=== PATIENT | male | born 1970 | race Caucasian/White ===

== ENCOUNTER 2022-02-03 20:07 | Inpatient (IN) | payer SELFPAY ==
[2022-02-03] MEDS ORDERED: Ondansetron PF 4 MG/2 ML Vial IVP PRN (21:43)
[2022-02-03] MEDS ORDERED: Ondansetron ODT 4 MG TAB PO PRN (21:43)
[2022-02-03 22:02] VITALS: BMI 27.2
[2022-02-03 23:11] LABS: Hemoglobin A1c 5.7 % (4.0-6.0)
[2022-02-03] MEDS ORDERED: Sodium Chloride 0.9% 1,000 ML IV SCH (23:15)
[2022-02-03] MEDS ORDERED: Morphine 4 MG/ML VIAL SLOW IVP SCH (23:30)
[2022-02-03 23:34] LABS: HIV (1/2) Antibody/Antigen Non-Reactive (NonReactive); HIV 1/2 INDEX 0.25 S/CO (<1.00); Hep C IgG Ab Non-Reactive (NonReactive); Hep C Index 0.13 S/CO (0-0.79)
[2022-02-03] MEDS ORDERED: Vancomycin HCl 1.75 GM in Sodium Chloride 0.9% 500 ML IVPB SCH (23:59)
[2022-02-04 06:01] LABS: #Basophils 0.1 thou/uL (0.0-0.2); #Eosinphils 0.5 thou/uL (0.0-0.7); #Lymphocytes 2.9 thou/uL (1.20-3.40); #Monocytes 1.1 thou/uL (0.11-0.59); #Neutrophils 7.1 thou/uL (1.40-6.50); %Basophils 0.5 % (0.0-1.0); %Eosinophils 3.9 % (0.0-10.0); %Lymphocytes 25.2 % (21.0-51.0); %Monocytes 9.2 % (0.0-10.0); %Neutrophils 61.3 % (42.0-75.0); Hemoglobin 13.8 g/dL (14.0-18.0); Mean Corpuscular HGB CONC 33.4 g/dL (32.0-36.0); Mean Corpuscular Hemoglobin 32.9 pg (27.0-31.0); Mean Corpuscular Volume 98.3 fL (78.0-98.0); Mean Platelet Volume 5.9 fL (7.4-10.4); Platelet Count 314 thou/uL (130-400); RBC Distribution Width 11.7 % (11.5-14.5); Red Blood Cell (RBC) Count 4.21 mill/uL (4.70-6.10); White Blood Cell (WBC) Count 11.7 thou/uL (4.8-10.8)
[2022-02-04 06:22] LABS: ALT (SGPT) 19 U/L (8-55); AST (SGOT) 19 U/L (5-34); Albumin 3.7 g/dL (3.5-5.0); Alkaline Phosphatase 83 U/L (40-110); Anion Gap 14 mmol/L (10-20); BUN (Urea Nitrogen) 22 mg/dL (8.4-25.7); Bilirubin, Total 0.3 mg/dL (0.2-1.2); Calc. Creatinine Clearance 96 mL/min (70-130); Carbon Dioxide 24 mmol/L (22-29); Chloride 102 mmol/L (98-107); Globulin 3.2 g/dL (2.4-3.5); Glucose 123 mg/dL (70-105); Potassium 3.7 mmol/L (3.5-5.1); Protein, Total 6.9 g/dL (6.0-8.3); Sodium 136 mmol/L (136-145)
[2022-02-04] MEDS ORDERED: Ketorolac Tromethamine 30 MG/ML VIAL IVP SCH (08:30)
[2022-02-04] MEDS ORDERED: Vancomycin 1.5 GRAM/300 ML BAG 1.5 GM in Premix Bag 1 BAG IVPB SCH (09:00)
[2022-02-04] MEDS: Sodium Chloride 0.9% 1,000 ML IV SCH ×2 (09:17→16:26)
[2022-02-04] MEDS: Vancomycin HCl 1.25 GM in Sodium Chloride 0.9% 250 ML 250 ML IVPB SCH ×2 (11:37→23:54)
[2022-02-04] MEDS: Ketorolac Tromethamine 30 MG/ML VIAL IVP PRN ×2 (16:52→23:58)
[2022-02-04] MEDS ORDERED: Midazolam HCl 2 mg/2 ml Vial ONE (18:57)
[2022-02-04] MEDS ORDERED: fentaNYL Citrate/PF 100 MCG/2 ML SYRINGE ONE (18:57)
[2022-02-04] MEDS ORDERED: Bacitracin Zinc Ointment 30 gm TUBE ONE (19:09)
[2022-02-04] MEDS ORDERED: Bupivacaine PF 0.5% 30 ML VIAL ONE (19:09)
[2022-02-04] MEDS ORDERED: PROPOFOL 200 MG/20 ML VIAL ONE (19:33)
[2022-02-04] MEDS ORDERED: Lidocaine 1% PF 5 ML VIAL ONE (19:33)
[2022-02-04] MEDS ORDERED: Neomycin-Polymyxin 1 ML AMP ONE (20:51)
[2022-02-04] MEDS ORDERED: Thrombin 5000 UNITS/5 ML VIAL ONE (20:51)
[2022-02-04] MEDS ORDERED: Promethazine HCl 25 MG/ML VIAL IM PRN (22:00)
[2022-02-05] MEDS: Sodium Chloride 0.9% 1,000 ML IV SCH (01:55)
[2022-02-05 05:32] LABS: #Eosinphils 0.5 thou/uL (0.0-0.7); #Lymphocytes 2.7 thou/uL (1.20-3.40); #Monocytes 0.7 thou/uL (0.11-0.59); #Neutrophils 6.7 thou/uL (1.40-6.50); %Basophils 0.4 % (0.0-1.0); %Eosinophils 4.8 % (0.0-10.0); %Lymphocytes 25.2 % (21.0-51.0); %Monocytes 6.7 % (0.0-10.0); Mean Corpuscular HGB CONC 33.5 g/dL (32.0-36.0); Mean Corpuscular Volume 98.3 fL (78.0-98.0); Mean Platelet Volume 5.9 fL (7.4-10.4); Platelet Count 286 thou/uL (130-400); RBC Distribution Width 11.5 % (11.5-14.5); Red Blood Cell (RBC) Count 4.26 mill/uL (4.70-6.10); White Blood Cell (WBC) Count 10.7 thou/uL (4.8-10.8)
[2022-02-05] MEDS: Acetaminophen 500 MG TAB PO SCH ×4 (05:32→22:31)
[2022-02-05] MEDS: Ketorolac Tromethamine 30 MG/ML VIAL IVP PRN ×2 (06:56→19:07)
[2022-02-05 11:19] LABS: Vancomycin, Trough 12.9 ug/mL
[2022-02-05] MEDS: Morphine 2 MG/ML VIAL SLOW IVP PRN ×2 (12:06→22:06)
[2022-02-05] MEDS: Vancomycin HCl 1.25 GM in Sodium Chloride 0.9% 250 ML 250 ML IVPB SCH (12:29)
[2022-02-06] MEDS: Vancomycin HCl 1.25 GM in Sodium Chloride 0.9% 250 ML 250 ML IVPB SCH ×2 (00:24→12:25)
[2022-02-06] MEDS: Ketorolac Tromethamine 30 MG/ML VIAL IVP PRN ×2 (05:19→12:31)
[2022-02-06] MEDS: Acetaminophen 500 MG TAB PO SCH ×4 (06:08→23:41)
[2022-02-06 06:52] LABS: #Basophils 0.1 thou/uL (0.0-0.2); #Eosinphils 0.5 thou/uL (0.0-0.7); #Lymphocytes 2.6 thou/uL (1.20-3.40); #Monocytes 0.7 thou/uL (0.11-0.59); #Neutrophils 4.8 thou/uL (1.40-6.50); %Basophils 0.8 % (0.0-1.0); %Eosinophils 5.5 % (0.0-10.0); %Lymphocytes 30.1 % (21.0-51.0); %Monocytes 8.1 % (0.0-10.0); %Neutrophils 55.5 % (42.0-75.0); Hemoglobin 13.7 g/dL (14.0-18.0); Mean Corpuscular HGB CONC 33.6 g/dL (32.0-36.0); Mean Corpuscular Volume 98.3 fL (78.0-98.0); Mean Platelet Volume 5.7 fL (7.4-10.4); Platelet Count 325 thou/uL (130-400); RBC Distribution Width 11.5 % (11.5-14.5); Red Blood Cell (RBC) Count 4.15 mill/uL (4.70-6.10); White Blood Cell (WBC) Count 8.6 thou/uL (4.8-10.8)
[2022-02-06 12:32] LABS: Vancomycin, Trough 10.6 ug/mL
[2022-02-06] MEDS: Morphine 2 MG/ML VIAL SLOW IVP PRN (14:26)
[2022-02-06] MEDS ORDERED: Meperidine HCl/PF 25 MG/ML VIAL IM PRN (15:29)
[2022-02-06] MEDS: Vancomycin 1.5 GRAM/300 ML BAG 1.5 GM in Premix Bag 1 BAG IVPB SCH (23:42)
[2022-02-07] MEDS: Acetaminophen 500 MG TAB PO SCH ×4 (06:41→23:50)
[2022-02-07 07:19] LABS: #Basophils 0.1 thou/uL (0.0-0.2); #Eosinphils 0.5 thou/uL (0.0-0.7); #Lymphocytes 2.9 thou/uL (1.20-3.40); #Monocytes 0.8 thou/uL (0.11-0.59); %Basophils 0.6 % (0.0-1.0); %Eosinophils 5.3 % (0.0-10.0); %Lymphocytes 28.1 % (21.0-51.0); %Monocytes 7.5 % (0.0-10.0); %Neutrophils 58.6 % (42.0-75.0); Hemoglobin 14.2 g/dL (14.0-18.0); Mean Corpuscular HGB CONC 33.4 g/dL (32.0-36.0); Mean Corpuscular Volume 98.8 fL (78.0-98.0); Platelet Count 341 thou/uL (130-400); RBC Distribution Width 11.5 % (11.5-14.5); White Blood Cell (WBC) Count 10.2 thou/uL (4.8-10.8)
[2022-02-07] MEDS ORDERED: Neomycin-Polymyxin 1 ML AMP ONE (07:19)
[2022-02-07] MEDS ORDERED: Thrombin 5000 UNITS/5 ML VIAL ONE (07:19)
[2022-02-07] MEDS ORDERED: Bupivacaine PF 0.5% 30 ML VIAL ONE (07:19)
[2022-02-07] MEDS ORDERED: Bacitracin Zinc Ointment 30 gm TUBE ONE (07:19)
[2022-02-07] MEDS ORDERED: Midazolam HCl 2 mg/2 ml Vial ONE (07:33)
[2022-02-07] MEDS ORDERED: fentaNYL Citrate/PF 100 MCG/2 ML SYRINGE ONE (07:34)
[2022-02-07] MEDS ORDERED: Lidocaine 1% PF 5 ML VIAL ONE (08:00)
[2022-02-07] MEDS ORDERED: Glycopyrrolate 0.2 MG/ML 5 ML SYRINGE ONE (08:00)
[2022-02-07] MEDS ORDERED: Ondansetron PF 4 MG/2 ML Vial ONE (08:00)
[2022-02-07] MEDS ORDERED: Dexamethasone 20 MG/5 ML VIAL ONE (08:00)
[2022-02-07] MEDS ORDERED: PROPOFOL 200 MG/20 ML VIAL ONE (08:00)
[2022-02-07] MEDS ORDERED: Mineral Oil Sterile 10 ML VIAL ONE (08:28)
[2022-02-07] MEDS ORDERED: hydrALAZINE 20 MG/ML VIAL ONE (09:21)
[2022-02-07] MEDS ORDERED: hydrALAZINE 20 MG/ML VIAL SLOW IVP SCH (10:00)
[2022-02-07] MEDS: Vancomycin 1.5 GRAM/300 ML BAG 1.5 GM in Premix Bag 1 BAG IVPB SCH ×2 (12:53→23:50)
[2022-02-07] MEDS: Morphine 2 MG/ML VIAL SLOW IVP PRN (19:33)
[2022-02-08 05:46] LABS: Hemoglobin 13.8 g/dL (14.0-18.0); Mean Corpuscular HGB CONC 33.6 g/dL (32.0-36.0); Mean Corpuscular Hemoglobin 32.8 pg (27.0-31.0); Mean Corpuscular Volume 97.6 fL (78.0-98.0); Mean Platelet Volume 5.6 fL (7.4-10.4); Platelet Count 394 thou/uL (130-400); RBC Distribution Width 11.6 % (11.5-14.5); Red Blood Cell (RBC) Count 4.21 mill/uL (4.70-6.10); White Blood Cell (WBC) Count 24.3 thou/uL (4.8-10.8)
[2022-02-08 06:04] VITALS: TEMP 98.3
[2022-02-08 06:05] LABS: Band 5 % (5-11); Eosinophils 2 % (0-10); Lymphocytes 17 % (21-51); MDiff Complete? YES; Monocytes 3 % (0-10); Neutrophil 72 % (42-75); Reactive Lymphocytes 1 % (0-10)
[2022-02-08] MEDS: Acetaminophen 500 MG TAB PO SCH ×2 (06:20→12:59)
[2022-02-08 08:25] VITALS: BP 163/76
[2022-02-08 09:37] LABS: Anion Gap 15 mmol/L (10-20); BUN (Urea Nitrogen) 14 mg/dL (8.4-25.7); Calc. Creatinine Clearance 132 mL/min (70-130); Calcium 9.1 mg/dL (7.8-10.44); Carbon Dioxide 24 mmol/L (22-29); Chloride 104 mmol/L (98-107); Glucose 81 mg/dL (70-105); Potassium 3.8 mmol/L (3.5-5.1); Sodium 139 mmol/L (136-145)
[2022-02-08] MEDS: Vancomycin 1.5 GRAM/300 ML BAG 1.5 GM in Premix Bag 1 BAG IVPB SCH (13:00)
== END 2022-02-08 15:39 | disposition home or self-care (01) | DRG 574 ==
LOC: T4-B 21:04
PROVIDERS: ADMIT Student in an Organized Health Care Education/Training Program; ATTEND Student in an Organized Health Care Education/Training Program
PROC: 0JBK0ZZ Excision of Left Hand Subcutaneous Tissue and Fascia, Open Approach (ICD-10-PCS; 2022-02-04)
PROC: 0HRGXK3 Replacement of Left Hand Skin with Nonautologous Tissue Substitute, Full Thickness, External Approach (ICD-10-PCS; principal; 2022-02-07)
DX: L03.012 Cellulitis of left finger (principal); L02.512 Cutaneous abscess of left hand; I96 Gangrene, not elsewhere classified; Z20.822 Contact with and (suspected) exposure to COVID-19; B95.61 Methicillin susceptible Staphylococcus aureus infection as the cause of diseases classified elsewhere; F17.210 Nicotine dependence, cigarettes, uncomplicated; Z79.899 Other long term (current) drug therapy; Z80.1 Family history of malignant neoplasm of trachea, bronchus and lung; Z72.89 Other problems related to lifestyle
CPT/HCPCS: 36415; 80048; 80053; 80202; 83036; 85025; 86803; 87070; 87077; 87186; 87205; 87389; 88304; C9363-KX-JC; J0360; J1100; J1885; J2175; J2250; J2270; J2405; J2704; J3370; J7030; J7050; S0020

== ENCOUNTER 2022-02-25 16:41 | Outpatient (CLI) | payer SELFPAY ==
[2022-02-26 00:19] LABS: SARS-CoV-2 PCR by NAA Not Detected (NotDetected)
== END 2022-02-25 16:42 | disposition home or self-care (01) ==
LOC: LABBT 16:41
PROVIDERS: ATTEND Orthopaedic Surgery Hand Surgery
DX: L02.512 Cutaneous abscess of left hand (principal); Z20.822 Contact with and (suspected) exposure to COVID-19
CPT/HCPCS: U0003; U0005

== ENCOUNTER → 2022-03-10 | Day surgery (SDC) | payer SELFPAY ==
[~2022-03-10] MED LIST: Vancomycin 1 GM/200 ML BAG ONE; fentaNYL Citrate/PF 100 MCG/2 ML SYRINGE ONE
[2022-03-10 16:58] VITALS: BMI 25.8
[2022-03-10 17:14] LABS: SARS-CoV-2 NAA Rapid Test Not Detected (NotDetected)
== END | disposition home or self-care (01) ==
LOC: SDC 15:15
PROVIDERS: ATTEND Orthopaedic Surgery Hand Surgery
DX: S41.102A Unspecified open wound of left upper arm, initial encounter (principal); Z53.9 Procedure and treatment not carried out, unspecified reason; Z20.822 Contact with and (suspected) exposure to COVID-19; X58.XXXA Exposure to other specified factors, initial encounter
CPT/HCPCS: J3370; U0002

== ENCOUNTER 2022-03-11 15:44 | Day surgery (SDC) | payer SELFPAY ==
[2022-03-11] MEDS ORDERED: Bupivacaine 0.25% HCL 30 ML VIAL ONE (16:56)
[2022-03-11] MEDS ORDERED: Bacitracin Zinc Ointment 30 gm TUBE ONE (16:56)
[2022-03-11] MEDS ORDERED: Lidocaine 1% w/Epinephrine 1:100K 20 ML VIAL ONE (16:56)
[2022-03-11] MEDS ORDERED: Mineral Oil Sterile 10 ML VIAL ONE (16:56)
[2022-03-11] MEDS ORDERED: Thrombin 5000 UNITS/5 ML VIAL ONE (16:56)
[2022-03-11] MEDS ORDERED: EPINEPHrine 1 MG/ML AMP ONE (16:56)
[2022-03-11] MEDS ORDERED: CEFAZOLIN 2 GM VIAL ONE (17:09)
[2022-03-11] MEDS ORDERED: Sodium Chloride 0.9% 100 ML ONE (17:09)
[2022-03-11] MEDS ORDERED: Ondansetron PF 4 MG/2 ML Vial ONE (17:14)
[2022-03-11] MEDS ORDERED: Dexamethasone 20 MG/5 ML VIAL ONE (17:14)
[2022-03-11] MEDS ORDERED: Lidocaine 1% PF 5 ML VIAL ONE (17:14)
[2022-03-11] MEDS ORDERED: PROPOFOL 200 MG/20 ML VIAL ONE (17:14)
[2022-03-11] MEDS ORDERED: Fentanyl 100 MCG/2 ML VIAL ONE (18:42)
[2022-03-11] MEDS ORDERED: Ketorolac Tromethamine 30 MG/ML VIAL ONE (19:18)
[2022-03-11] MEDS ORDERED: HYDROcodone/Acetaminophen 5/325 mg Tablet ONE (19:24)
== END 2022-03-11 19:45 | disposition home or self-care (01) ==
LOC: SDC 15:44
PROVIDERS: ATTEND Orthopaedic Surgery Hand Surgery
PROC: 0HRGX73 Replacement of Left Hand Skin with Autologous Tissue Substitute, Full Thickness, External Approach (ICD-10-PCS; principal; 2022-03-11)
DX: S61.207A Unspecified open wound of left little finger without damage to nail, initial encounter (principal); F17.200 Nicotine dependence, unspecified, uncomplicated; L03.012 Cellulitis of left finger; X58.XXXA Exposure to other specified factors, initial encounter
CPT/HCPCS: J0171; J1100; J1885; J2405; J2704; J3010; J3370; J3490; S0020